=== PATIENT | female | born 2000 | race Two or more races ===

== ENCOUNTER 2021-06-14 12:34 | Emergency (ER) | payer OTHER ==
[~2021-06-14] VITALS: Ht 154.9 cm; Wt 43.2 kg
[2021-06-14 17:48] LABS: RSV AMPLIFICATION NEGATIVE (NEGATIVE)
[2021-06-14 18:45] LABS: BASO % 0.2 % (0.0-1.0); EOS # 0.1 10^3/uL (0.0-0.5); EOS % 0.6 % (0.0-3.0); HEMATOCRIT 40.1 % (36.0-47.0); HEMOGLOBIN 13.3 g/dl (12.0-15.5); LYMPH # 1.4 10^3/uL (1.5-5.0); LYMPH % 11.9 % (24.0-44.0); MEAN CORPUSCULAR HEMOGLOBIN 31.4 pg (27.0-33.0); MEAN CORPUSCULAR HGB CONC 33.2 g/dl (32.0-36.5); MEAN CORPUSCULAR VOLUME 94.6 fl (80.0-96.0); MONO # 1.1 10^3/uL (0.0-0.8); MONO % 9.2 % (2.0-8.0); NEUTROPHILS # 9.3 10^3/uL (1.5-8.5); NEUTROPHILS % 77.8 % (36.0-66.0); PLATELET COUNT, AUTOMATED 306 10^3/uL (150-450); RED BLOOD COUNT 4.24 10^6/uL (4.00-5.40)
--- NOTE | 2021-06-14 18:48 | REP ---
INDICATION: rule out abscess left ovary. COMPARISON: None. TECHNIQUE: Transabdominal and transvaginal scanning performed. FINDINGS: Uterine dimensions are 4.4 x 2.4 x 3.9 cm. Endometrial echo is 3 mm in AP dimension and centrally placed. No cervix is visualized. The bladder measures 4.5 x 3.8 x 6.4cm. The right ovary has dimensions of 1.9 x 1.6 x 1.6 cm. It's Doppler flow is normal with a resistive index of 0.45. The left ovary dimensions are 2.0 x 2.5 x 1.7 cm. It's Doppler flow was normal with resistive index of 0.51. A simple, anechoic the left adnexal cyst is visualized measuring 2.0 x 1.4 x 2.3 cm. No free fluid is seen in the cul-de-sac. IMPRESSION: No definite cervix visualized. Endometrial thickness 3 mm. No torsion. Simple, anechoic left adnexal cyst 2.0 x 1.4 x 2.3 cm. No free fluid. <Electronically signed by Geronimo Sherman > 06/14/21 [id number]
[2021-06-14 19:05] LABS: ERYTHROCYTE SEDIMENTATION RATE 65 mm/hr (0-20)
[2021-06-14 19:14] LABS: BLOOD UREA NITROGEN 17 MG/DL (7-18); CALCIUM LEVEL 8.8 MG/DL (8.5-10.1); CARBON DIOXIDE LEVEL 30 MEQ/L (21-32); CHLORIDE LEVEL 100 MEQ/L (98-107); CREATININE FOR GFR 0.85 MG/DL (0.55-1.30); GLOMERULAR FILTRATION RATE > 60.0 (>60); GLUCOSE, FASTING 130 MG/DL (70-100); SODIUM LEVEL 135 MEQ/L (136-145)
[2021-06-14] MEDS ORDERED: NS 1,000 ML IV ONE (19:50)
[2021-06-14] MEDS: GASTROGRAFIN SOLUTION 30ML PO SCH ×2 (20:30→21:00)
[2021-06-14] MEDS ORDERED: ISOVUE-370 76% 100ML VIAL As Ordered ONE (22:50)
[2021-06-14 23:41] LABS: GC DNA AMPLIFICATION NEGATIVE (NEGATIVE)
--- NOTE | 2021-06-15 00:01 | REPVR ---
PROCEDURE INFORMATION: Exam: CT Abdomen With Contrast Exam date and time: 06/14/2021 11:01 PM Age: 21 years old Clinical indication: Abdominal pain; Localized; Left upper quadrant (luq); Additional info: Luq pain TECHNIQUE: Imaging protocol: Computed tomography images of the abdomen with intravenous contrast. Radiation optimization: All CT scans at this facility use at least one of these dose optimization techniques: automated exposure control; mA and/or kV adjustment per patient size (includes targeted exams where dose is matched to clinical indication); or iterative reconstruction. Contrast material: ISOVUE 370; Contrast volume: 100 ml; Contrast route: INTRAVENOUS (IV); COMPARISON: US PELVIC NON-OB COMPLETE 06/14/2021 5:57 PM FINDINGS: Liver: Normal. No mass. Gallbladder and bile ducts: Normal. No calcified stones. No ductal dilation. Pancreas: Normal. No ductal dilation. Spleen: Normal. No splenomegaly. Adrenals: Normal. No mass. Kidneys and ureters: There are foci of abnormal decreased enhancement involving the left kidney with left perinephric infiltrative change. There are small indeterminate hypodensities involving the left kidney. Stomach and bowel: Regions of colonic thickening are likely secondary to under distention. Intraperitoneal space: Small volume of free fluid within the pelvis. Lymph nodes: Unremarkable. No enlarged lymph nodes. Vasculature: Unremarkable. No abdominal aortic aneurysm. Bladder: Mild nonspecific thickening of the urinary bladder wall, likely at least in part secondary to under distention. Bones/joints: Unremarkable. No acute fracture. No dislocation. Soft tissues: Unremarkable. IMPRESSION: 1. Findings compatible left-sided pyelonephritis. 2. No discrete drainable fluid collection. 3. Additional findings as above. COMMENTS: Consistent with the [employer]'s Incidental Findings Committee white paper (J Am Elier Radiol 2018): Any incidental renal lesion less than 1 cm or classified as too small to characterize, or any incidental cystic renal lesion characterized as simple-appearing, is likely benign. No follow-up imaging is recommended for these lesions per consensus recommendations based on imaging criteria. Electronically signed by: Gómez Whitman On 06/15/2021 00:00:59 AM
[2021-06-15] MEDS ORDERED: cefTRIAXone SOD 1 GM in D5W MINI-BAG PLUS 50 ML IV ONE (00:05)
[2021-06-15] MEDS ORDERED: SULF1TAB23 PO (00:11)
[2021-06-15 01:05] VITALS: BP 116/70
== END 2021-06-15 01:09 | disposition home or self-care (01) ==
LOC: M ED 12:34
DX: N10 Acute pyelonephritis (principal)
CPT/HCPCS: 74160; 76830; 76856; 80047; 80048; 81001; 83605; 84702; 85025; 85652; 86140; 87040; 87088; 87186; 87631; 87661; 93976; 96361; 96374; 99284; J0696; Q9963; Q9967